=== PATIENT | male | born 1965 | race Caucasian/White ===

== ENCOUNTER → 2016-10-17 | Outpatient (CLI) | payer BC ==
--- NOTE | 2016-10-17 10:52 | DI ---
Indication: ITS.REASON: M25.562 PAIN IN LEFT KNEE posterior knee pain for several months. PROCEDURE: MRI KNEE LEFT W/O CONTRAST: Encounter: Initial Comparison: None Technique: Multiplanar multisequence MR imaging of the left knee was performed without contrast. Findings: The lateral meniscus is normal. Complex tear of the body and posterior horn medial meniscus. The ACL and PCL are intact. The MCL and lateral collateral ligament complex are intact. The extensor mechanism is intact. Bone marrow signal intensity is normal. No acute fracture. The cartilage of the lateral compartment is maintained. Medial compartment cartilage is intact. Patellofemoral compartment cartilage shows a couple small areas of fissuring in the median ridge without full-thickness defect. No joint effusion or Brooks's cyst. Muscular signal intensity is normal. Impression: Medial meniscal tear. .
--- NOTE | 2016-10-17 10:56 | DI ---
Indication: ITS.REASON: M54.16 RADICULOPATHY, LUMBAR REGION PROCEDURE: MRI LUMBAR SPINE W/O CONTRAST: Encounter: Initial Comparison: None Technique: Multiplanar multisequence MR imaging of the lumbar spine was performed without contrast. Findings: Alignment of the lumbar spine is within normal limits. No acute fracture identified. Bone marrow signal intensity is within normal limits. Conus medullaris terminates normally at L1. The paraspinal soft tissues are unremarkable. Segmental analysis: L1-L2: Small left central protrusion without central canal or neural foraminal stenosis. Disk material does contact the traversing left L2 nerve root, best seen on axial image #5. L2-L3: Normal L3-L4: Mild disk desiccation without focal protrusion or central canal stenosis. Mild degenerative facet disease contributing to mild bilateral neural foraminal stenosis. L4-L5: Small central disk protrusion contributing to mild central canal narrowing. Degenerative facet disease with mild bilateral neural foraminal stenosis. L5-S1: Mild degenerative facet change. Small right foraminal protrusion without central canal stenosis. Moderate right neural foraminal stenosis. No significant left foraminal narrowing. Impression: Small focal protrusion on the left at L1-L2 contacts the traversing left L2 nerve root. Otherwise there areas of bilateral foraminal stenosis in the mid to lower lumbar spine. .
== END ==
LOC: IMA 07:03
PROVIDERS: ATTEND Family Medicine Sports Medicine
DX: S83.232A Complex tear of medial meniscus, current injury, left knee, initial encounter (principal); X58.XXXA Exposure to other specified factors, initial encounter; Y93.9 Activity, unspecified; Y92.9 Unspecified place or not applicable; Y99.9 Unspecified external cause status; M47.896 Other spondylosis, lumbar region; M47.897 Other spondylosis, lumbosacral region; M51.26 Other intervertebral disc displacement, lumbar region; M51.36 Other intervertebral disc degeneration, lumbar region; M54.16 Radiculopathy, lumbar region; M25.562 Pain in left knee

== ENCOUNTER 2016-11-23 09:15 | Day surgery (SDC) | payer BC ==
[2016-11-23] VITALS (14 sets, daily range): BP systolic 136–168; BP diastolic 75–97; PULSE 56–82; RESP 10–18; TEMP 96.8–97.6; O2SAT 93–97; Ht 182.9 cm; Wt 121.9 kg
[~2016-11-23] VITALS: Ht 182.9 cm; Wt 121.9 kg
[~2016-11-23 09:15] MED LIST: LIDOCAINE 1% (10mg/ml) 2ml SDV INJ ONE; LR 1,000 ML IV SCH
--- NOTE | 2016-11-23 10:06 | ANESPREOP ---
Anesthesia Record Date and Time DATE: 11/23/16 TIME: 10:04 Pre-Op Diagnosis left knee meniscus tear Proposed Surgical Procedure LT KNEE SCOPE NPO since: mn Allergies: Coded Allergies: NKDA (Verified Allergy, Unknown, 11/23/16) Ht/Wt/BMI Height: 6 ' 0.00 " Weight: 121.900 kg BMI: 36.5 kg/m2 Vital Signs Date Time Temp Pulse Resp B/P Pulse Ox O2 Delivery O2 Flow Rate FiO2 11/23/16 09:32 97.6 65 16 154/94 96 Room Air Medications Inpatient Medications Current Medications Medications (Trade) Dose Ordered Sig/Shad Start Time Stop Time Status Last Admin Dose Admin Lactated Ringer's (Lactated Ringers) 1,000 ml @ 50 mls/hr Q20H 11/23/16 07:00 No Active Prescriptions or Reported Meds Currently on Beta Zuleika: No Medical/Surgical History Anesthesia PMH: Denies: *Diabetes, Anesthesia Reactions (NO AIRWAY ISSUES), Arthritis, Blood Transfusion Reac, Cancer, Clotting Problems, Glaucoma, Malignant Hyperthermia, Renal Disease, Sleep Apnea, Thyroid Disease Smoking Status: Never smoker Past Surgical History Orthopedic Surgeries: Abdominal Surgeries: Genitourinary Surgeries: Cardiac Surgeries: Endocrine Surgeries: Reproductive Surgeries: Neurological Surgeries: Ear Surgeries: Nose Surgeries: Throat Surgeries: Yes - TONSILLECTOMY PER H&P Other Surgeries: Anesthesia Adverse Reactions: FOUND none Family Hx of Anesthesia Advers: none Hx of Motion Sickness: No Pertinent Findings EKG Rhythm: Sinus Rhythm Physical Exam Respiratory: Bilat breath sounds equal, Lungs clear Cardiovascular: FOUND Regular rate, rhythm, FOUND No murmur Airway Assessment Mallampati Score: II TMD: 3 Fingerbreadths Neck Extension: Good Overall Assessment: No Airway Concerns ASA: 1 Plan Anesthesia Plan: TIVA, LMA, GETA Discussion Discussed risks/options/alternatives of anesthesia and questions answered. Patient consents. Nursing pain assessment noted. Attestation Statement Prior to the delivery of any anesthetic medication, I examined the patient, developed the plan, obtained the patient's consent and discussed the risk and benefits of the procedure with the patient/guardian. CHANDNI MENDEZ CRNA November 23, 2016 10:06
[2016-11-23] MEDS ORDERED: MEPERIDINE 100 mg/ml VIAL ONE (10:38)
[2016-11-23] MEDS ORDERED: BUPIVACAINE 0.25% (2.5mg/ml) INJ 30ml SDV ONE (10:38)
[2016-11-23] MEDS ORDERED: FENTANYL 100mcg/2ml INJECTION ONE ×2 (10:44→11:14)
[2016-11-23] MEDS ORDERED: LIDOCAINE 2% (20mg/ml) 5ml PF SDV ONE (10:45)
[2016-11-23] MEDS ORDERED: PROPOFOL 200mg 20 ML IV ONE (10:45)
[2016-11-23] MEDS ORDERED: MIDAZOLAM 2mg/2ml INJECTION ONE (10:45)
[2016-11-23] MEDS ORDERED: KETAMINE 500mg/10ml INJECTION ONE (10:45)
[2016-11-23] MEDS ORDERED: KETOROLAC 30mg/ml INJECTION ONE (11:13)
[2016-11-23] MEDS ORDERED: DEXAMETHASONE 4mg/ml - 1ml INJECTION ONE (11:13)
[2016-11-23] MEDS ORDERED: ONDANSETRON 4mg/2ml INJECTION ONE (11:13)
[2016-11-23] MEDS ORDERED: PROPOFOL 500mg 50 ML IV ONE (11:20)
[2016-11-23] MEDS ORDERED: MELO7.5T12 PO (11:37)
[2016-11-23] MEDS ORDERED: ONDA4TAB4 PO (11:37)
[2016-11-23] MEDS ORDERED: HYDR-4246 PO (11:37)
--- NOTE | 2016-11-23 11:39 | PDPROCED ---
Immediate Operative Note DATE: 11/23/16 TIME: 11:38 Preop Diagnosis: LEFT KNEE MMT Postop Diagnosis: Left knee MMT, primary OA Surgical Procedures: L Knee Arthroscopy (PMM, limited synovectomy) Surgeon: Saranya Methane Gas Collection System Operator: SANDY Shelton Anesthesia: General Complications: none Estimated Blood Loss see anesthesia JAILENE WEBB November 23, 2016 11:39
[2016-11-23] MEDS ORDERED: CEFAZOLIN 1 GRAM INJECTION IV ONE (12:15)
--- NOTE | 2016-11-23 13:02 | ANESPO ---
Post-Op Note Date 11/23/16 Time: 13:00 Status Pt Participated in Evaluation: Pt participated in person Vital Signs Date Time Temp Pulse Resp B/P Pulse Ox O2 Delivery O2 Flow Rate FiO2 11/23/16 12:15 60 18 148/90 95 Nasal Cannula 2.00 11/23/16 12:14 97.1 Respiratory Function: Airway patent Cardiovascular Function: Regular pulse Mental Status: Alert/oriented Pain Level Intensity: 0 Hydration: Taking po fluids, IV infusing Complications during Recovery None apparent Follow-Up Instructions Instructions Per Surgeon CHANDNI MENDEZ CRNA November 23, 2016 13:02
--- NOTE | 2016-11-23 15:10 | OPNOTEF ---
DATE 11/23/2016 PREOPERATIVE DIAGNOSES 1. Left knee posterior horn medial meniscus tear. 2. Left knee mild patellofemoral medial compartment arthritis. POSTOPERATIVE DIAGNOSES 1. Left knee posterior horn medial meniscus tear. 2. Left knee mild patellofemoral medial compartment arthritis. 3. Left knee fat pad inflammation. PROCEDURE 1. Left knee arthroscopic partial medial meniscectomy. 2. Left knee arthroscopic limited synovectomy, anterior compartment. 3. Left knee arthroscopic shaving chondroplasty, patella and medial femoral condyle. SURGEON Steven Beaver MD YARD SWITCH OPERATOR Mino Stafford PA-C ANESTHESIA General. FLUIDS Please refer to Anesthesia chart. EBL Minimal. TOURNIQUET Please refer to Anesthesia chart. COMPLICATIONS None. CONDITION Stable to Recovery Room. DESCRIPTION OF PROCEDURE The patient was identified in the preoperative holding area. The operative extremity was identified and appropriately marked. The risks, benefits, alternatives and potential complications were discussed and informed consent was obtained. The patient was taken to the operating theatre, placed supine on the operating table. Appropriate cardiorespiratory monitors were applied. General anesthesia was induced. A tourniquet was applied high on the left thigh though not yet inflated. The left lower extremity was sterilely prepped and draped in the usual fashion. Surgical time-out was performed, confirmed with myself, the cardroom manager and circulating nurse. Preoperative antibiotics were given. Examination under anesthesia revealed trace effusion. No warmth, erythema or ecchymosis. Knee is ligamentously stable. The leg was elevated and the tourniquet was inflated. A standard inferolateral portal was established. The arthroscope was inserted and the knee was insufflated with saline. Needle localization was utilized to establish an inferomedial portal and diagnostic examination ensued. Suprapatellar pouch, medial and lateral gutters were found to be free of loose bodies or debris. Patellofemoral joint was obscured by fat pad. A limited synovectomy was performed of the anterior compartment with a suction shaver. Patellofemoral joint was then visualized, noting a centrally tracking patella. There was grade 3 change at the apex and the lateral facet. This area was debrided of any loose chondral tissue with a shaver. The medial compartment was then entered. There was noted to be some grade 2 and mild grade 3 change on the far lateral aspect of the medial femoral condyle. This was the weightbearing portion adjacent to the notch. This area was debrided with a shaver as well. There was complex tearing of the posterior horn of the medial meniscus. There was oblique tearing through the posterior horn itself and then a radial tear approximately 6 mm medial to the root. Inspection through the notch showed this to be about a 75% depth tear of the radial split. A series of silvia and biters were used to resect the torn portion of the meniscus back to a stable rim. Probing revealed the remainder of the meniscus to be stable. The intercondylar notch was then visualized noting an intact ACL and PCL. Lateral compartment was entered as the knee was moved to a figure-four position. There was some grade 2 change in the tibial plateau. Lateral meniscus was intact. The knee was copiously lavaged, irrigated and drained. All arthroscopic instruments were removed. Portals were closed with nylon sutures. Marcaine was injected around the portal sites and Marcaine cocktail in the joint. Sterile dressings were applied followed by an Keanu bandage. Tourniquet was deflated. The patient was awakened from anesthesia and taken to the recovery room in stable and satisfactory condition. CHELLY
== END 2016-11-23 13:20 | disposition home or self-care (01) ==
LOC: NSC 09:15
PROVIDERS: ATTEND Orthopaedic Surgery
DX: S83.232A Complex tear of medial meniscus, current injury, left knee, initial encounter (principal); M17.12 Unilateral primary osteoarthritis, left knee; M79.4 Hypertrophy of (infrapatellar) fat pad; Z87.891 Personal history of nicotine dependence; X50.9XXA Other and unspecified overexertion or strenuous movements or postures, initial encounter
CPT/HCPCS: 29881; G0289; J1100; J1885; J2175; J2250; J2405; J2704; J3010; J7120; S0020